=== PATIENT | female | born 1960 | race Caucasian/White ===

== ENCOUNTER 2016-08-31 16:34 | Emergency (ER) | payer OTHER ==
[~2016-08-31] VITALS: Ht 160 cm; Wt 114.8 kg
[~2016-08-31 16:34] MED LIST: ACETAZOLAMIDE250 MG PO; ALBUTEROL0.09 MG/A2 INH; ALDACTONE100 MG PO; AMLODIPINE BESY10 MG PO; AMLODIPINE10 MG PO; ASPIR-TRIN325 MG PO; ATENOLOL100 M1 PO; BENADRYL ALLERG25 M5 PO; CARAFATE1 G1 PO; CLARITIN10 MG PO; CORDROL20 MG PO; COREG12.5 MG PO; CYCLOBENZAPRINE10 MG PO; DAYPRO600 M1 PO; DIAMOX SEQUELS500 MG PO; DIAMOX250 MG PO; DICLOFENAC SOD75 MG PO; DOXYCYCLINE100 M3 PO; FLEXERIL10 MG PO; GABAPENTIN300 MG PO; GLUCOPHAGE500 M1 PO; HYDROCODONE BIT1 T11 PO; IBUPROFEN600 MG PO; LASIX20 MG PO; LEVOFLOXACIN500 MG PO; MEDROL DOSEPAK4 MG PO; METFORMIN ER500 MG PO; METHOTREXATE2.5 MG PO; MIRALAX17 GM/PACK PO; MOTRIN800 MG PO; Meclizine25 MG PO; NEURONTIN300 MG PO; NEXIUM40 MG PO; OMEPRAZOLE40 MG PO; OSTERA TABLET1 EACH PO; PLAQUENIL200 MG PO; PREDNISONE10 MG PO; PREDNISONE5 MG PO; PRILOSEC40 MG PO; REGLAN10 M1 PO; REGLAN10 MG PO; RELAFEN500 MG PO; ROBAXIN750 MG PO; ROBITUSSIN DM120 ML PO; VIBRAMYCIN100 MG PO; VICO75300 PO; VICODIN 5/500 505 MG PO; VICODIN 500 MG-1 TAB PO; VICODIN ES 7501 TA1 PO; VITAMIN D1000 IU PO; ZITHROMAX Z PA250 MG PO
[2016-08-31 16:37] VITALS: BP 166/62
[2016-08-31] MEDS ORDERED: MEDROL DOSEPAK4 MG PO (16:52)
== END 2016-08-31 17:00 | disposition home or self-care (01) ==
LOC: ED 16:34
DX: M54.5 Low back pain (principal); Z90.49 Acquired absence of other specified parts of digestive tract; Z79.899 Other long term (current) drug therapy; Z88.1 Allergy status to other antibiotic agents; Z88.6 Allergy status to analgesic agent; Z88.8 Allergy status to other drugs, medicaments and biological substances

== ENCOUNTER 2017-03-13 13:27 | Emergency (ER) | payer OTHER, MEDICAID ==
[~2017-03-13] VITALS: Ht 160 cm; Wt 113.4 kg
[2017-03-13 13:48] VITALS: BP 116/50
[2017-03-13] MEDS ORDERED: CYCLOBENZAPRINE10 MG PO (15:35)
== END 2017-03-13 15:42 | disposition home or self-care (01) ==
LOC: ED 13:27
DX: M54.31 Sciatica, right side (principal); K21.9 Gastro-esophageal reflux disease without esophagitis; I10 Essential (primary) hypertension; E11.9 Type 2 diabetes mellitus without complications; E78.1 Pure hyperglyceridemia; Z88.6 Allergy status to analgesic agent; Z88.5 Allergy status to narcotic agent; Z88.1 Allergy status to other antibiotic agents; Z79.899 Other long term (current) drug therapy; Z79.84 Long term (current) use of oral hypoglycemic drugs; Z86.73 Personal history of transient ischemic attack (TIA), and cerebral infarction without residual deficits; Z87.11 Personal history of peptic ulcer disease; Z90.710 Acquired absence of both cervix and uterus; Z90.49 Acquired absence of other specified parts of digestive tract

== ENCOUNTER 2017-03-17 12:28 | Inpatient (IN) | payer OTHER, MEDICAID ==
[~2017-03-17] VITALS: Ht 160 cm; Wt 120.8 kg
[2017-03-17 12:30] VITALS: BP 145/66
[2017-03-17] MEDS ORDERED: NEURONTIN300 MG PO ×3 (12:51→16:33)
[2017-03-17] MEDS ORDERED: REGLAN5 MG PO (12:52)
[2017-03-17] MEDS ORDERED: TRAMADOL HCL50 MG PO ×2 (12:53→17:07)
[2017-03-17] MEDS ORDERED: XARE20MG PO (12:54)
[2017-03-17 13:08] LABS: BASO % 0.3 % (0.0-1.0); EOS # 0.1 10*3/uL (0.0-0.4); EOS % 0.9 % (1.0-4.0); HEMATOCRIT 41.6 % (37.0-47.0); HEMOGLOBIN 13.2 g/dl (12.0-16.0); LYMPH # 1.5 10*3/uL (1.3-4.4); LYMPH % 13.3 % (27.0-41.0); MEAN CORPUSCULAR HGB 31.7 pg (27.0-31.0); MEAN CORPUSCULAR HGB CONC 31.7 g/dl (33.0-37.0); MEAN PLATELET VOLUME 10.4 fl (9.6-12.3); MONO # 0.8 10*3/uL (0.1-1.0); MONO % 7.6 % (3.0-9.0); NEUT # 8.5 10*3/uL (2.3-7.9); NUCLEATED RED BLOOD CELL 0.1 10*3/uL (0.0-0.0); NUCLEATED RED BLOOD CELL 0.5 % (0.0-0.0); PLATELET COUNT AUTOMATED 177 10*3/uL (130-400); RED BLOOD COUNT 4.16 10*6/uL (4.10-5.10); RED CELL DISTRI WIDTH 13.9 % (0-14.5); WHITE BLOOD COUNT 11.1 10*3/uL (4.8-10.8)
[2017-03-17 13:23] LABS: ALBUMIN 3.5 gm/dl (3.1-4.5); ALKALINE PHOSPHATASE 66 U/L (45-117); BUN 23 mg/dl (7-24); CHLORIDE 102 mmol/L (98-107); CREATININE 0.97 mg/dL (0.55-1.02); POTASSIUM 3.8 mmol/L (3.5-5.1); SGOT/AST 28 IU/L (3-35); SGPT/ALT 47 U/L (12-78); SODIUM 142 mmol/L (136-145); TOTAL PROTEIN 6.3 gm/dL (6.4-8.2)
[2017-03-17 16:00] VITALS: BP 145/66
[2017-03-17] MEDS ORDERED: CYCLOBENZAPRINE10 MG PO (16:30)
[2017-03-17] MEDS ORDERED: ATENOLOL50 M1 PO (16:30)
[2017-03-17] MEDS ORDERED: METFORMIN1000 MG PO (16:31)
[2017-03-17 17:00] VITALS: BP 131/71
[2017-03-17] MEDS ORDERED: LASIX20 MG PO (17:04)
[2017-03-17] MEDS ORDERED: ATENOLOL100 M1 PO (17:05)
[2017-03-17] MEDS ORDERED: CLARITIN10 MG PO (17:06)
[2017-03-17] MEDS ORDERED: VITAMIN D31000 UNI1 PO (17:06)
[2017-03-17 20:00] VITALS: BP 132/61
[2017-03-18] VITALS: BP 144/78
[2017-03-18 07:48] LABS: HEMATOCRIT 37.9 % (37.0-47.0); HEMOGLOBIN 12.2 g/dl (12.0-16.0); MEAN CELL VOLUME 98.2 fl (81.0-99.0); MEAN CORPUSCULAR HGB 31.6 pg (27.0-31.0); MEAN CORPUSCULAR HGB CONC 32.2 g/dl (33.0-37.0); MEAN PLATELET VOLUME 10.8 fl (9.6-12.3); NUCLEATED RED BLOOD CELL 0.2 % (0.0-0.0); PLATELET COUNT AUTOMATED 161 10*3/uL (130-400); RED BLOOD COUNT 3.86 10*6/uL (4.10-5.10); RED CELL DISTRI WIDTH 13.7 % (0-14.5); WHITE BLOOD COUNT 9.6 10*3/uL (4.8-10.8)
[2017-03-18 08:00] VITALS: BP 121/49
[2017-03-18 08:26] LABS: BUN 23 mg/dl (7-24); CHLORIDE 101 mmol/L (98-107); CHOLESTEROL 202 mg/dL (<200); CREATININE 0.77 mg/dL (0.55-1.02); POTASSIUM 4.3 mmol/L (3.5-5.1); SODIUM 139 mmol/L (136-145)
[2017-03-18 08:38] LABS: FREE T4 1.26 ng/dl (0.76-1.46); HDL CHOLESTEROL 65 mg/dl (40-60); LDL CHOLESTEROL 112 mg/dL (9-159); PHOSPHOROUS 3.5 mg/dL (2.5-4.9); THYROID STIM HORMONE (HS) 0.162 uIU/ml (0.358-4.75); TRIGLYCERIDES 123 mg/dl (<150); VLDL CHOLESTEROL 25 mg/dL (6-40)
[2017-03-18 08:39] LABS: PLATELET SUFFICIENCY NORMAL (NORMAL); TOTAL CELLS COUNTED 100 #CELLS
[2017-03-18 09:03] LABS: VITAMIN D, 25-HYDROXY 26.9 ng/mL (30-100)
[2017-03-18 09:54] LABS: ACT PARTIAL THROMBO TIME 20.1 SECONDS (19.5-32.1)
[2017-03-18 12:00] VITALS: BP 109/54
[2017-03-18 16:00] VITALS: BP 134/71
[2017-03-18 20:00] VITALS: BP 147/69
[2017-03-19] VITALS: BP 134/90
[2017-03-19 08:00] VITALS: BP 127/50; BP 96/48
[2017-03-19 12:00] VITALS: BP 125/61; BP 130/54
[2017-03-19 16:00] VITALS: BP 128/52
[2017-03-19 20:00] VITALS: BP 132/59
[2017-03-20] VITALS: BP 153/74; BP 157/74
[2017-03-20 08:00] VITALS: BP 145/64
[2017-03-20] MEDS ORDERED: NORCO 10-325 T1 EACH PO (10:15)
[2017-03-20] MEDS ORDERED: WALKER DEVI (10:20)
== END 2017-03-20 14:15 | disposition home or self-care (01) | DRG 552 ==
LOC: ED 12:28 → 4E 16:01 → EDHOLD 16:01 → 4E 16:19
PROVIDERS: Emergency Medicine; Internal Medicine; Internal Medicine Hospice and Palliative Medicine
DX: M51.16 Intervertebral disc disorders with radiculopathy, lumbar region (principal); E11.65 Type 2 diabetes mellitus with hyperglycemia; E66.01 Morbid (severe) obesity due to excess calories; D75.89 Other specified diseases of blood and blood-forming organs; E55.9 Vitamin D deficiency, unspecified; T14.8XXA Other injury of unspecified body region, initial encounter; Z68.41 Body mass index [BMI] 40.0-44.9, adult; K21.9 Gastro-esophageal reflux disease without esophagitis; M35.3 Polymyalgia rheumatica; M81.0 Age-related osteoporosis without current pathological fracture; I10 Essential (primary) hypertension; G93.2 Benign intracranial hypertension; K27.9 Peptic ulcer, site unspecified, unspecified as acute or chronic, without hemorrhage or perforation; M47.817 Spondylosis without myelopathy or radiculopathy, lumbosacral region; E78.1 Pure hyperglyceridemia; Z96.653 Presence of artificial knee joint, bilateral; G89.29 Other chronic pain; M46.96 Unspecified inflammatory spondylopathy, lumbar region; M48.061 Spinal stenosis, lumbar region without neurogenic claudication; W18.39XA Other fall on same level, initial encounter; Y93.89 Activity, other specified; Y92.098 Other place in other non-institutional residence as the place of occurrence of the external cause; Y99.8 Other external cause status; Z86.73 Personal history of transient ischemic attack (TIA), and cerebral infarction without residual deficits; Z79.899 Other long term (current) drug therapy; Z79.01 Long term (current) use of anticoagulants; Z90.710 Acquired absence of both cervix and uterus; Z90.49 Acquired absence of other specified parts of digestive tract; Z87.828 Personal history of other (healed) physical injury and trauma; Z79.84 Long term (current) use of oral hypoglycemic drugs; Z88.1 Allergy status to other antibiotic agents; Z88.5 Allergy status to narcotic agent; Z88.0 Allergy status to penicillin; Z88.8 Allergy status to other drugs, medicaments and biological substances; Z82.49 Family history of ischemic heart disease and other diseases of the circulatory system; Z83.3 Family history of diabetes mellitus; Z82.0 Family history of epilepsy and other diseases of the nervous system

== ENCOUNTER 2020-12-27 13:39 | Emergency (ER) | payer MEDICARE, MEDICAID ==
[~2020-12-27] VITALS: Wt 109.8 kg
[~2020-12-27 13:39] MED LIST changes: +ATENOLOL50 M1 PO; +METFORMIN1000 MG PO; +NORCO 10-325 T1 EACH PO; +REGLAN5 MG PO; +TRAMADOL HCL50 MG PO; +VITAMIN D31000 UNI1 PO; +WALKER DEVI; +XARE20MG PO
[2020-12-27 13:53] VITALS: BP 00/00
== END 2020-12-27 18:00 ==
LOC: ED 14:02
DX: I46.9 Cardiac arrest, cause unspecified (principal); K21.9 Gastro-esophageal reflux disease without esophagitis; I10 Essential (primary) hypertension; E11.9 Type 2 diabetes mellitus without complications; E66.01 Morbid (severe) obesity due to excess calories; Z88.0 Allergy status to penicillin; Z88.1 Allergy status to other antibiotic agents; Z88.6 Allergy status to analgesic agent; Z88.8 Allergy status to other drugs, medicaments and biological substances; Z79.899 Other long term (current) drug therapy; Z86.73 Personal history of transient ischemic attack (TIA), and cerebral infarction without residual deficits